=== PATIENT | female | born 1965 | race Hispanic/Latino ===

== ENCOUNTER 2021-01-23 10:22 | Observation (INO) | payer MEDICAID ==
[2021-01-16 11:19] LABS: CREATININE 0.7 mg/dL (0.5-1.5); POTASSIUM 4.4 mmol/L (3.5-5.1)
[2021-01-22 16:11] VITALS: BP 142/69
[~2021-01-23] VITALS: Ht 167.6 cm; Wt 86.0 kg
[2021-01-23] VITALS (16 sets, daily range): BP systolic 104–166; BP diastolic 56–83
[~2021-01-23 10:22] MED LIST: [UNRECOGNIZED DRUG - OTHER] PO
[2021-01-23] MEDS ORDERED: LACTATED RINGERS 1000ML 1,000 ML IV ONE (12:04)
[2021-01-23] MEDS: CEFAZOLIN SODIUM 1 GM VIAL ONE ×2 (12:27→13:20)
[2021-01-23] MEDS ORDERED: NEOSTIGMINE 5MG/5ML SYR IV ONE (13:12)
[2021-01-23] MEDS ORDERED: GLYCOPYRROLATE 1 MG/5 ML SYRINGE ONE (13:12)
[2021-01-23] MEDS ORDERED: SUCCINYLCHOLINE 200MG/10ML SYR ONE (13:12)
[2021-01-23] MEDS ORDERED: DEXAMETHASONE SOD PHOSPHATE 10MG/ML 1ML VIAL ONE (13:12)
[2021-01-23] MEDS ORDERED: ROCURONIUM 10MG/1ML SYR 10 MG/ML ML ONE ×2 (13:12→14:43)
[2021-01-23] MEDS ORDERED: LIDOCAINE PF 100MG/5ML (2%) SYRINGE 5ML ONE ×2 (13:12→13:33)
[2021-01-23] MEDS ORDERED: FENTANYL CITRATE PF 50 MCG/1 ML 2ML VIAL ONE (13:12)
[2021-01-23] MEDS ORDERED: PROPOFOL 10 MG/ML 20ML VIAL IV ONE (13:12)
[2021-01-23] MEDS ORDERED: MIDAZOLAM HCL 1 MG/ML 2ML VIAL ONE (13:12)
[2021-01-23] MEDS ORDERED: ONDANSETRON 4MG INJ ONE (13:12)
[2021-01-23] MEDS ORDERED: MEPERIDINE-PF 25 MG/ML SYG ONE ×2 (17:05→17:14)
[2021-01-23] MEDS ORDERED: MORPHINE 4 MG SYG IV PRN (18:30)
[2021-01-23] MEDS ORDERED: ONDANSETRON 4MG INJ IVP PRN (18:30)
[2021-01-23] MEDS ORDERED: MORPHINE 4 MG SYG ONE (18:38)
[2021-01-23] MEDS: GABAPENTIN 100 MG CAPSULE PO SCH (22:23)
[2021-01-24 03:05] VITALS: BP 95/57
[2021-01-24 06:11] LABS: HEMATOCRIT 34.3 % (36-48); MEAN CORPUSCULAR HEMOGLOBIN 28.9 pg (27.0-33.0); MEAN CORPUSCULAR VOLUME 96.1 fL (79-99); PLATELET COUNT (AUTO) 267 K/uL (130-400); RED BLOOD CELL COUNT(AUTO) 3.57 MIL/uL (4.00-5.50); RED CELL DISTRIBUTION WIDTH 12.8 % (11.0-15.5); WHITE BLOOD COUNT (AUTO) 7.2 K/uL (4.8-10.8)
[2021-01-24 07:19] VITALS: BP 99/54
[2021-01-24] MEDS: GABAPENTIN 100 MG CAPSULE PO SCH ×2 (09:17→13:49)
[2021-01-24 11:16] VITALS: BP 105/54
[2021-01-24] MEDS ORDERED: TRAMADOL HCL 50 MG TABLET PO PRN (13:30)
[2021-01-24 16:06] VITALS: BP 110/54
[2021-01-24] MEDS ORDERED: TRAM50TA4 PO (16:44)
== END 2021-01-24 17:30 | disposition home or self-care (01) ==
LOC: DAH 10:22 → WSH 10:23 → DAH 18:22
PROVIDERS: ADMIT Student in an Organized Health Care Education/Training Program; ATTEND Student in an Organized Health Care Education/Training Program
DX: C50.411 Malignant neoplasm of upper-outer quadrant of right female breast (principal); Z20.822 Contact with and (suspected) exposure to COVID-19; M19.90 Unspecified osteoarthritis, unspecified site
CPT/HCPCS: 19307; 36415 ×2; 71045; 80048; 85027; 87635; 88307; 88309; 88360; 93005; 96361; 96374; A6260; A9272; C9803; G0378 ×23; J0330; J0690; J1100; J2175 ×2; J2250; J2270 ×2; J2405; J2710; J3010; J3490 ×4; J7120; J2001; J2704

== ENCOUNTER → 2023-01-16 | Outpatient (CLI) | payer MEDICAID ==
[~2023-01-16] MED LIST changes: +TRAM50TA4 PO
== END | disposition home or self-care (01) ==
LOC: RAH 11:22
PROVIDERS: ATTEND Internal Medicine Hematology & Oncology
DX: I82.401 Acute embolism and thrombosis of unspecified deep veins of right lower extremity (principal)
CPT/HCPCS: 93971